=== PATIENT | female | born 1960 | race Caucasian/White ===

== ENCOUNTER → 2017-10-12 | Outpatient (CLI) | payer OTHER ==
[~2017-10-12] MED LIST: NS 100 ML IV 100 ML IV ONE
[2017-10-12 10:48] LABS: CREATININE 0.87 mg/dL (0.55-1.02)
--- NOTE | 2017-10-12 13:12 | CT ---
Indication: Goiter and neck mass Exam: CT neck with contrast Technique: Axial spiral images were obtained from the base the skull through the clavicles after bolu s administration of 100 cc Omnipaque 350. Automated does control was utilized. Findings: The visualized intracranial and orbital contents are unremarkable. The nasopharynx is unrem arkable. The right parotid gland is mildly atrophic with no mass or inflammation. The left parotid gl and, and submandibular glands are grossly normal in size and density. The nasopharynx is unremarkable . The parapharyngeal soft tissues are normal. No adenopathy or mass is seen in the neck. The epiglott is and glottis are unremarkable. The subglottic airway is unremarkable. The thyroid gland is borderli ne enlarged extending inferiorly, just beneath the clavicles bilaterally , with no focal mass seen . There is no supraclavicular adenopathy. The visualized superior mediastinum is unremarkable. There is biapical pleural thickening and scarring bilaterally. There are moderate degenerative changes seen i n the spine with no aggressive osseous lesion. The prevertebral soft tissues are normal. There is mil d mucosal thickening along the maxillary sinuses. The prevertebral soft tissues are normal. Impression: No obvious neck mass or adenopathy seen. Borderline thyroid goiter with no mass seen, suggest ultrasound correlation. Mild chronic sinusitis. Reported By:
--- NOTE | 2017-10-12 13:21 | CT ---
Indication: Goiter in COPD Exam: CT chest with contrast Technique: Axial spiral images were obtained from the level above the clavicles through the adrenals after bolus administration of IV contrast. Findings: The thyroid gland is borderline enlarged and extends just below the clavicles bilaterally w ith no focal lesions seen. The aorta and pulmonary arteries are normal caliber and well opacified wit h no filling defects . There is no aneurysm or dissection. No mediastinal mass or adenopathy is seen. The adrenals are normal and the visualized upper abdomen is unremarkable. The lungs are hyperinflate d and emphysematous with minimal pleural thickening and scarring along the apices extending into the upper lobes posteriorly. There is a 4 mm nodule in the right middle lobe laterally on image 37 of ser ies 5 . There is a tiny 2 mm subpleural nodule or scar along the right upper lobe inferior laterally . There is a irregular linear subpleural linear density along the left upper lobe posteriorly . tiny calcified nodule along the left upper lobe posteriorly and superior segment left lower lobe . There i s a 2 mm subpleural nodule or scar along the left lung base posteriorly. No consolidation or is seen. Moderate degenerative changes are seen throughout the spine with no aggressive osseous lesion . Ther e is mild scoliosis. Impression: 5 mm nodule in the right middle lobe anteriorly and a couple of tiny subpleural nodules or scars in b oth lungs , suggest short-term follow-up to assure stability. Mild biapical pleural thickening and scarring with a probable subpleural scar along the left upper lo be posteriorly , suggest follow-up to assure long-term stability . COPD with no acute infiltrate or effusion. Borderline thyromegaly , suggest ultrasound follow-up. Reported By:
== END ==
LOC: RAD 10:18
PROVIDERS: ATTEND Nurse Practitioner
DX: E01.0 Iodine-deficiency related diffuse (endemic) goiter (principal); J43.1 Panlobular emphysema; J44.9 Chronic obstructive pulmonary disease, unspecified
CPT/HCPCS: 36415; 70491; 71260; 82565; 84520; A4222